=== PATIENT | male | born 1950 | race Caucasian/White ===

== ENCOUNTER → 2016-06-25 | Day surgery (SDC) | payer MEDICARE ==
[~2016-06-25] MED LIST: ADVAIR 2501 DISK W/D PO; ALBUTEROL 0.5ML; ALBUTEROL MININEB NEB; ALPRAZOLAM PO; AMLOD PO; AMLODIPINE-BEN1 EAC1 PO; AMLODIPINE-BENA1 CAP PO; ATENOLOL PO; B-121000 MC1 PO; BEET ROOT PO; BREO ELLIPTA 11 EACH INH; CIPRO PO; COLACE PO; FLOMAX0.4 M1 PO; LANSOPRAZOLE PO; LEVAQUIN PO; LIPITOR20 MG PO; LOTREL 5/10 MG1 CAP PO; NABUMETONE PO; NEXIUM PO; NIACIN500 M1 PO; NORVASC10 MG PO; ORACEA PO; OXYGEN; PROAIR HFA8.5 GM INH; PROSCAR5 MG PO; PYRIDIUM100 MG PO; RELAFEN500 MG PO; SPIRIVA18 MCG INH; TUDORZA PRESS400 MCG INH; TUSSIN MAX15 MG/5 M1 PO; UROXATRAL10 MG PO; VITAMIN A10000 UNI3 PO; VITAMIN D31000 UNI1 PO; ZITHROMAX PO; ZOCOR PO; [UNRECOGNIZED DRUG - OTHER] PO
--- NOTE | ~2016-06-25 | OR ---
Unit #: [id number] #: [id number] Patient: MILADY MARQUEZ [id number] [address] [address] [id number] MR#: [id number] NAME: MILADY MARQUEZ ROOM: Date of Procedure: 06/25/2016 Admission Date: 06/25/2016 Surgeon: Raymond Conner M.D. : 1950 Attending Physician: Raymond Conner M.D. Primary Care Physician: Aleksandr Navarro M.D. OPERATIVE REPORT PRIMARY CARE PHYSICIAN Aleksandr Navarro M.D. PREOPERATIVE DIAGNOSES Dyspepsia, dysphagia, and gastroesophageal reflux. PROCEDURES PERFORMED Upper gastrointestinal endoscopy and biopsy as well as upper gastrointestinal endoscopy and dilation. POSTOPERATIVE DIAGNOSES 1. The patient had short segment of Cao esophagus. This was in the form of tongues of columnar mucosa ascending above the gastroesophageal junction. 2. Distal esophageal early stricture. The latter was dilated using a 60-[place] Narayanan dilator. 3. Small hiatus hernia. 4. Mild antral gastritis. Biopsies obtained from the antrum for CLOtest. RECOMMENDATIONS The patient will continue on Nexium 40 mg p.o. b.i.d. He will be followed up in the office in 3 months' time. SEDATION USED MAC. DESCRIPTION OF PROCEDURE Following detailed explanation of potential risks and complications of an upper endoscopy, namely perforation, bleeding, and complications related to sedation, the patient was brought to GI lab and laid in the left lateral decubitus position. Lubricated tip of the Olympus video upper endoscope was passed through bite block into the proximal esophagus under direct vision. The entire esophageal mucosa was examined. The patient was noted to have tongues of columnar mucosa ascending above the gastroesophageal junction. In addition, there was early stricture in the distal esophagus. A small hiatus hernia was traversed. The scope was then advanced into the gastric cavity and the latter was insufflated. Mucosa of the fundus, body, and antrum was examined and mild antral erythema and erosions noted indicating antral gastritis. Pylorus was intubated with visualization of the normal duodenal bulb and second and third part of the duodenum. Upon withdrawal and retroflexion, incisura, cardia, and greater curve examined and biopsy obtained from the antrum for Unit #: [id number] #: [id number] Patient: MILADY MARQUEZ. The scope was withdrawn in the distal esophagus. Biopsies obtained from the distal esophagus from the tongues of columnar mucosa that were suggestive of Cao's. The entire esophageal mucosa was examined all the way up to pharynx. No additional findings noted. A 60-[place] Narayanan dilator was introduced through the oral cavity and advanced into the esophagus. Relook endoscopy showed fracturing of the stricture with minimal bleeding. The area was thoroughly washed with water and good hemostasis was achieved. The scope was then withdrawn. The patient returned to recovery area. He tolerated the procedure without any postprocedure complications. Dictated by... Jayne Plummer/iman TD: 06/26/2016 04:17 JOB #: [id number] OPERATIVE REPORT X Raymond Conner MD X PROCEDURE OPERATIVE NOTE
== END | disposition home or self-care (01) ==
LOC: COPS 11:39
DX: K21.0 Gastro-esophageal reflux disease with esophagitis (principal); K29.70 Gastritis, unspecified, without bleeding; K22.70 Barrett's esophagus without dysplasia; K22.2 Esophageal obstruction; K44.9 Diaphragmatic hernia without obstruction or gangrene; I10 Essential (primary) hypertension; J44.9 Chronic obstructive pulmonary disease, unspecified; J40 Bronchitis, not specified as acute or chronic; N40.0 Benign prostatic hyperplasia without lower urinary tract symptoms; Z88.1 Allergy status to other antibiotic agents; Z88.5 Allergy status to narcotic agent; Z88.6 Allergy status to analgesic agent; Z88.8 Allergy status to other drugs, medicaments and biological substances; Z79.2 Long term (current) use of antibiotics; Z79.899 Other long term (current) drug therapy; Z90.89 Acquired absence of other organs; Z98.41 Cataract extraction status, right eye; Z98.42 Cataract extraction status, left eye; Z98.890 Other specified postprocedural states
CPT/HCPCS: 87077; 88305